=== PATIENT | female | born 1960 | race Caucasian/White ===

== ENCOUNTER → 2018-06-05 | Outpatient (CLI) | payer BC ==
[~2018-06-05] MED LIST: ALBU90OI; EPIN.3I; FLUSAL5005
[2018-06-05 12:34] LABS: BASOPHILS ABSOLUTE AUTO 0.03 K/mm3 (0.00-0.23); BASOPHILS PERCENT AUTO 1 % (0-2); EOSINOPHILS ABSOLUTE AUTO 0.25 K/mm3 (0.00-0.68); EOSINOPHILS PERCENT AUTO 4 % (0-6); Hematocrit 43.6 % (33.0-51.0); IMMATURE GRAN ABSOLUTE AUTO 0.04 K/mm3 (0.00-0.10); IMMATURE GRAN PERCENT AUTO 1 % (0-1); LYMPHOCYTES ABSOLUTE AUTO 1.23 K/mm3 (0.84-5.20); LYMPHOCYTES PERCENT AUTO 21 % (21-46); MONOCYTES ABSOLUTE AUTO 0.59 K/mm3 (0.16-1.47); MONOCYTES PERCENT AUTO 10 % (4-13); Mean Corpuscular HGB 30.7 pg (26.0-34.0); Mean Corpuscular HGB Conc 34.4 g/dL (31.5-36.5); Mean Corpuscular Volume 89 fL (80-100); Mean Platelet Volume 9.1 fL (9.1-12.4); NEUTROPHILS ABSOLUTE AUTO 3.67 K/mm3 (1.96-9.15); NEUTROPHILS PERCENT AUTO 63 % (41-73); Platelet Count 151 K/mm3 (150-400); RDW Coefficient Variation 12.7 % (11.7-14.2); RDW Standard Deviation 41.3 fL (35.1-46.3); Red Blood Cell Count 4.88 M/mm3 (3.80-5.20); White Blood Cell Count 5.81 K/mm3 (4.00-11.30)
[2018-06-05 12:47] LABS: Anion Gap 10 mmol/L (6-16); Blood Urea Nitrogen 12 mg/dL (8-24); Bun/Creatinine Ratio 14.1 (12.0-20.0); CO2, Blood 27 mmol/L (21-32); Calcium, Blood 9.7 mg/dL (8.5-10.1); Chloride, Blood 102 mmol/L (98-108); Creatinine, Blood 0.85 mg/dL (0.40-1.00); Glomerular Filtration Rate >60 (60-); Glucose, Blood 107 mg/dL (70-99); Potassium, Blood 4.1 mmol/L (3.5-5.5); Sodium, Blood 139 mmol/L (136-145); Troponin I <0.017 ng/mL (0.000-0.040)
== END | disposition home or self-care (01) ==
LOC: LAB EV 12:29 → LAB SHORT 12:29
PROVIDERS: Physician Assistant Surgical
DX: R06.02 Shortness of breath (principal)
CPT/HCPCS: 80048; 83880; 84484; 85025

== ENCOUNTER 2019-01-23 22:27 | Inpatient (IN) | payer BC ==
[~2019-01-23] VITALS: Ht 165.1 cm; Wt 83.0 kg
[~2019-01-23 22:27] MED LIST changes: -ALBU90OI; +ALBU90OI INH; -EPIN.3I; +EPIPEN 2-P0.3 MG/0.3 IM; -FLUSAL5005; +FLUT1DIS8 INH
[2019-01-23 23:12] LABS: BASOPHILS ABSOLUTE AUTO 0.07 K/mm3 (0.00-0.23); BASOPHILS PERCENT AUTO 0 % (0-2); EOSINOPHILS ABSOLUTE AUTO 0.24 K/mm3 (0.00-0.68); EOSINOPHILS PERCENT AUTO 2 % (0-6); Hematocrit 52.5 % (33.0-51.0); IMMATURE GRAN ABSOLUTE AUTO 0.11 K/mm3 (0.00-0.10); IMMATURE GRAN PERCENT AUTO 1 % (0-1); LYMPHOCYTES PERCENT AUTO 2 % (21-46); MONOCYTES ABSOLUTE AUTO 0.85 K/mm3 (0.16-1.47); MONOCYTES PERCENT AUTO 5 % (4-13); Mean Corpuscular HGB 31.7 pg (26.0-34.0); Mean Corpuscular HGB Conc 34.3 g/dL (31.5-36.5); Mean Corpuscular Volume 93 fL (80-100); Mean Platelet Volume 8.8 fL (9.1-12.4); NEUTROPHILS ABSOLUTE AUTO 14.23 K/mm3 (1.96-9.15); NEUTROPHILS PERCENT AUTO 90 % (41-73); Platelet Count 214 K/mm3 (150-400); RDW Coefficient Variation 12.7 % (11.7-14.2); RDW Standard Deviation 43.2 fL (35.1-46.3); Red Blood Cell Count 5.67 M/mm3 (3.80-5.20)
[2019-01-23] MEDS ORDERED: CEFD300 PO (23:31)
[2019-01-23] MEDS ORDERED: IRBE150 PO (23:31)
[2019-01-23 23:32] LABS: Alanine Aminotransfer (ALT/SGP 45 U/L (12-78); Albumin/Globulin Ratio 0.9 (0.8-1.8); Alk Phos 131 U/L (50-136); Anion Gap 9 mmol/L (6-16); Aspartate Aminotrans (AST/SGOT 33 U/L (12-37); Bilirubin, Total 0.7 mg/dL (0.1-1.0); Blood Urea Nitrogen 12 mg/dL (8-24); Bun/Creatinine Ratio 13.3 (12.0-20.0); CO2, Blood 23 mmol/L (21-32); Calcium, Blood 9.6 mg/dL (8.5-10.1); Chloride, Blood 105 mmol/L (98-108); Globulin, Blood 4.3 g/dL (2.2-4.0); Glomerular Filtration Rate >60 (60-); Glucose, Blood 155 mg/dL (70-99); Potassium, Blood 3.9 mmol/L (3.5-5.5); Sodium, Blood 137 mmol/L (136-145); Total Protein, Blood 8.3 g/dL (6.4-8.2); Troponin I <0.015 ng/mL (0.000-0.040)
[2019-01-23] MEDS ORDERED: TIOT18 INH (23:32)
--- NOTE | 2019-01-24 05:40 | NUR ---
PCU ADMIT / SHIFT SUMMARY PT BROUGHT TO PCU RM 09 FROM ER BY CARLYN @ APPROX 0400. PT A&O X4, ABLE TO INDEPENDENTLY AMBULATE. VSS. LUNG SOUNDS CLEAR, SPO2 > 92% ON RA. MONITOR SHOWS, NSR/ST, HR 90-115. PT UP TO BATHROOM W/ FREQUENT URINATION. STOOL TO BE COLLECTED FOR C-DIFF R/O. PT REPORTS FREQUENT DIARRHEA BEGINNING YESTERDAY, NO BM THIS SHIFT. WILL CONTINUE TO MONITOR AND PROVIDE CARE UNTIL REPORT OFF TO DAY SHIFT RN.
--- NOTE | 2019-01-24 16:06 | NUR ---
PT CHANGED TO MEDICAL STATUS THIS AM. VITAL SIGNS STABLE. NO COMPLAINTS AT THIS TIME. PT DENIES PAIN. PT INDEPENDENT IN THE ROOM. REPORT GIVEN TO MEDICAL FLOOR RN.
--- NOTE | 2019-01-24 18:46 | NUR ---
PT ARRIVED TO ROOM AT APPROX 1700 AND SETTLED IN. CAME BY W/C AND ABLE TO TRANSFER SELF TO BED AND THEN GOT UP AND WALKED AROUND IN ROOM. IV FLUIDS RESTARTED AND CALLED PHARMACY FOR CHANGE IN ANTIBIOTIC TREATMENT FREQUENCY. MEAL GIVEN TO PT. REPORTS SHE IS FEELING MUCH BETTER THAN WHEN SHE FIRST ARRIVED TO HOSPITAL.
--- NOTE | 2019-01-25 05:04 | NUR ---
SHIFT SUMMARY: 58 Y/O FEMALE RESTED COMFORTABLY IN BED ALL SHIFT, ALL AMBULATE BATHROOM AND BACK WITH GAIT SLOW AND STEADY, DENIES PAIN OR NAUSEA, CHEERFUL, DENIES DIARRHEA EPISODES ALL SHIFT, BED LOW POSITION, CALL LIGHT AT SIDE.
[2019-01-25 05:11] LABS: BASOPHILS ABSOLUTE AUTO 0.02 K/mm3 (0.00-0.23); BASOPHILS PERCENT AUTO 0 % (0-2); EOSINOPHILS PERCENT AUTO 5 % (0-6); Hematocrit 44.4 % (33.0-51.0); Hemoglobin 14.6 g/dL (11.5-16.0); IMMATURE GRAN ABSOLUTE AUTO 0.04 K/mm3 (0.00-0.10); IMMATURE GRAN PERCENT AUTO 1 % (0-1); LYMPHOCYTES ABSOLUTE AUTO 1.41 K/mm3 (0.84-5.20); LYMPHOCYTES PERCENT AUTO 21 % (21-46); MONOCYTES ABSOLUTE AUTO 0.46 K/mm3 (0.16-1.47); MONOCYTES PERCENT AUTO 7 % (4-13); Mean Corpuscular HGB 30.7 pg (26.0-34.0); Mean Corpuscular HGB Conc 32.9 g/dL (31.5-36.5); Mean Corpuscular Volume 94 fL (80-100); Mean Platelet Volume 8.5 fL (9.1-12.4); NEUTROPHILS ABSOLUTE AUTO 4.37 K/mm3 (1.96-9.15); NEUTROPHILS PERCENT AUTO 66 % (41-73); Platelet Count 159 K/mm3 (150-400); RDW Standard Deviation 44.2 fL (35.1-46.3); Red Blood Cell Count 4.75 M/mm3 (3.80-5.20)
[2019-01-25] MEDS ORDERED: Florastor250 MG PO (12:17)
[2019-01-25] MEDS ORDERED: CIPR500 PO (12:18)
== END 2019-01-25 12:56 | disposition home or self-care (01) | DRG 872 ==
LOC: ER 22:27 → PCU 01-24 03:55 → MEDS 01-24 16:49 → ENPENDDIS 01-25 12:03 → MEDS 01-25 12:56
PROVIDERS: Physician Assistant; ADMIT Internal Medicine
DX: A41.51 Sepsis due to Escherichia coli [E. coli] (principal); N39.0 Urinary tract infection, site not specified; R65.20 Severe sepsis without septic shock; J44.9 Chronic obstructive pulmonary disease, unspecified; I10 Essential (primary) hypertension; I95.9 Hypotension, unspecified; F17.200 Nicotine dependence, unspecified, uncomplicated; Z91.018 Allergy to other foods; Z79.899 Other long term (current) drug therapy
CPT/HCPCS: 36415; 71046; 80053; 83605; 84484; 85025; 87040; 87493; 93005; 93010; 94640; 94760; 96361; 96365; 96366; 99285-25; J1650; J2543; J7030; J7050

== ENCOUNTER → 2019-02-10 | Outpatient (CLI) | payer BC ==
[~2019-02-10] MED LIST changes: +CEFD300 PO; +CIPR500 PO; +Florastor250 MG PO; +IRBE150 PO; +TIOT18 INH
[2019-02-10 14:10] LABS: Source, Urine Clean Catch
[2019-02-10 15:13] LABS: Bilirubin, Urine Neg (Neg); Blood, Urine 1+ (Neg); Glucose Qualitative, Urine Neg (Neg); Ketones, Urine Neg (Neg); Leukocyte Esterase, Urine Neg (Neg); Nitrite, Urine Neg (Neg); Protein, Urine Neg (Neg); Specific Gravity, Urine 1.005 (1.003-1.022); Urobilinogen, Urine NORM (Normal); pH, Urine 6.5 (5.0-8.0)
[2019-02-10 15:28] LABS: Appearance, Urine Clear (Clear); Color, Urine Yellow (P-Yellow)
[2019-02-10 15:29] LABS: Bacteria Few /hpf; Squamous Epithelial Cells Few /hpf (Few); White Blood Cells, Urine 0-2 /hpf (0-5)
== END | disposition home or self-care (01) ==
LOC: LAB 14:09 → LAB SHORT 14:09 → EDSTATUS 02-07 12:15 → LAB FUT 02-07 12:15
PROVIDERS: Internal Medicine
DX: N39.0 Urinary tract infection, site not specified (principal)
CPT/HCPCS: 81001

== ENCOUNTER → 2019-09-04 | Outpatient (CLI) | payer BC ==
[2019-09-04 13:09] LABS: Source, Urine Clean Catch
[2019-09-04 15:16] LABS: Appearance, Urine Clear (Clear); Bilirubin, Urine Neg (Neg); Blood, Urine 1+ (Neg); Color, Urine Yellow (P-Yellow); Glucose Qualitative, Urine Neg (Neg); Ketones, Urine Neg (Neg); Leukocyte Esterase, Urine Neg (Neg); Nitrite, Urine Neg (Neg); Protein, Urine Neg (Neg); Specific Gravity, Urine 1.015 (1.003-1.022); Urobilinogen, Urine NORM (Normal); pH, Urine 6.5 (5.0-8.0)
[2019-09-04 16:55] LABS: Bacteria Rare /hpf; Red Blood Cells, Urine 0-2 /hpf (0-2); Squamous Epithelial Cells Few /hpf (Few); White Blood Cells, Urine 0-2 /hpf (0-5)
== END ==
LOC: LAB SHORT 13:07 → OLS 13:07
PROVIDERS: Urology
DX: N39.0 Urinary tract infection, site not specified (principal)
CPT/HCPCS: 81001; 87086

== ENCOUNTER 2019-12-11 21:16 | Emergency (ER) | payer BC ==
[~2019-12-11] VITALS: Ht 165.1 cm; Wt 89.4 kg
[2019-12-11 22:03] LABS: BASOPHILS ABSOLUTE AUTO 0.04 K/mm3 (0.00-0.23); BASOPHILS PERCENT AUTO 1 % (0-2); EOSINOPHILS ABSOLUTE AUTO 0.22 K/mm3 (0.00-0.68); EOSINOPHILS PERCENT AUTO 3 % (0-6); Hematocrit 45.9 % (33.0-51.0); Hemoglobin 15.9 g/dL (11.5-16.0); IMMATURE GRAN ABSOLUTE AUTO 0.04 K/mm3 (0.00-0.10); IMMATURE GRAN PERCENT AUTO 1 % (0-1); LYMPHOCYTES ABSOLUTE AUTO 2.38 K/mm3 (0.84-5.20); LYMPHOCYTES PERCENT AUTO 29 % (21-46); MONOCYTES ABSOLUTE AUTO 0.69 K/mm3 (0.16-1.47); MONOCYTES PERCENT AUTO 9 % (4-13); Mean Corpuscular HGB 30.8 pg (26.0-34.0); Mean Corpuscular HGB Conc 34.6 g/dL (31.5-36.5); Mean Corpuscular Volume 89 fL (80-100); Mean Platelet Volume 9.1 fL (9.1-12.4); NEUTROPHILS ABSOLUTE AUTO 4.72 K/mm3 (1.96-9.15); NEUTROPHILS PERCENT AUTO 58 % (41-73); Platelet Count 175 K/mm3 (150-400); RDW Coefficient Variation 12.3 % (11.7-14.2); RDW Standard Deviation 40.6 fL (35.1-46.3); Red Blood Cell Count 5.17 M/mm3 (3.80-5.20); White Blood Cell Count 8.09 K/mm3 (4.00-11.30)
[2019-12-11 22:25] LABS: Alanine Aminotransfer (ALT/SGP 58 U/L (12-78); Albumin, Blood 3.9 g/dL (3.4-5.0); Alk Phos 108 U/L (50-136); Anion Gap 7 mmol/L (6-16); Aspartate Aminotrans (AST/SGOT 44 U/L (12-37); Bilirubin, Total 0.4 mg/dL (0.1-1.0); Blood Urea Nitrogen 9 mg/dL (8-24); Bun/Creatinine Ratio 12.8 (12.0-20.0); CO2, Blood 25 mmol/L (21-32); Calcium, Blood 8.7 mg/dL (8.5-10.1); Chloride, Blood 102 mmol/L (98-108); Globulin, Blood 3.8 g/dL (2.2-4.0); Glomerular Filtration Rate >60 (60-); Glucose, Blood 119 mg/dL (70-99); Potassium, Blood 3.6 mmol/L (3.5-5.5); Sodium, Blood 134 mmol/L (136-145); Total Protein, Blood 7.7 g/dL (6.4-8.2); Troponin I <0.015 ng/mL (0.000-0.040)
== END 2019-12-12 00:58 | disposition home or self-care (01) ==
LOC: ER 21:16
PROVIDERS: Emergency Medicine
DX: R55 Syncope and collapse (principal); R07.9 Chest pain, unspecified; Z88.2 Allergy status to sulfonamides; Z91.018 Allergy to other foods; Z79.899 Other long term (current) drug therapy; Z79.2 Long term (current) use of antibiotics; J44.9 Chronic obstructive pulmonary disease, unspecified; I10 Essential (primary) hypertension; F17.200 Nicotine dependence, unspecified, uncomplicated
CPT/HCPCS: 36415; 71046; 80053; 84484; 85025; 93005; 93010; 99284-25

== ENCOUNTER 2020-08-07 23:54 | Emergency (ER) | payer BC ==
[~2020-08-07] VITALS: Ht 162.6 cm; Wt 86.2 kg
[~2020-08-07 23:54] MED LIST changes: -ALBU90OI INH; -FLUT1DIS8 INH
[2020-08-08 00:44] LABS: BASOPHILS ABSOLUTE AUTO 0.05 K/mm3 (0.00-0.23); BASOPHILS PERCENT AUTO 1 % (0-2); EOSINOPHILS ABSOLUTE AUTO 0.15 K/mm3 (0.00-0.68); EOSINOPHILS PERCENT AUTO 2 % (0-6); Hematocrit 49.7 % (33.0-51.0); Hemoglobin 17.4 g/dL (11.5-16.0); IMMATURE GRAN ABSOLUTE AUTO 0.03 K/mm3 (0.00-0.10); IMMATURE GRAN PERCENT AUTO 0 % (0-1); LYMPHOCYTES ABSOLUTE AUTO 1.82 K/mm3 (0.84-5.20); LYMPHOCYTES PERCENT AUTO 24 % (21-46); MONOCYTES ABSOLUTE AUTO 0.65 K/mm3 (0.16-1.47); MONOCYTES PERCENT AUTO 9 % (4-13); Mean Corpuscular HGB 30.5 pg (26.0-34.0); Mean Corpuscular Volume 87 fL (80-100); Mean Platelet Volume 9.2 fL (9.1-12.4); NEUTROPHILS ABSOLUTE AUTO 4.87 K/mm3 (1.96-9.15); NEUTROPHILS PERCENT AUTO 64 % (41-73); Platelet Count 211 K/mm3 (150-400); RDW Coefficient Variation 12.1 % (11.7-14.2); RDW Standard Deviation 38.9 fL (35.1-46.3); Red Blood Cell Count 5.71 M/mm3 (3.80-5.20); White Blood Cell Count 7.57 K/mm3 (4.00-11.30)
[2020-08-08 01:04] LABS: Alanine Aminotransfer (ALT/SGP 48 U/L (12-78); Albumin, Blood 3.7 g/dL (3.4-5.0); Albumin/Globulin Ratio 0.9 (0.8-1.8); Alk Phos 132 U/L (50-136); Anion Gap 9 mmol/L (6-16); Aspartate Aminotrans (AST/SGOT 28 U/L (12-37); Bilirubin, Total 0.4 mg/dL (0.1-1.0); Blood Urea Nitrogen 10 mg/dL (8-24); Bun/Creatinine Ratio 13.8 (12.0-20.0); CO2, Blood 26 mmol/L (21-32); Calcium, Blood 9.4 mg/dL (8.5-10.1); Chloride, Blood 105 mmol/L (98-108); Creatinine, Blood 0.73 mg/dL (0.40-1.00); Globulin, Blood 4.3 g/dL (2.2-4.0); Glomerular Filtration Rate >60 (60-); Glucose, Blood 130 mg/dL (70-99); Magnesium, Blood 2.1 mg/dL (1.6-2.4); Potassium, Blood 3.3 mmol/L (3.5-5.5); Sodium, Blood 140 mmol/L (136-145); Troponin I <0.015 ng/mL (0.000-0.040)
== END 2020-08-08 03:27 | disposition home or self-care (01) ==
LOC: ER 23:54
PROVIDERS: Emergency Medicine
DX: R00.2 Palpitations (principal); Z79.899 Other long term (current) drug therapy
CPT/HCPCS: 36415; 71046; 80053; 83735; 83880; 84145; 84484; 85025; 85379; 93005; 93010; 99284-25; J7030

== ENCOUNTER 2020-09-04 14:03 | Observation (INO) | payer BC ==
[~2020-09-04] VITALS: Ht 162.6 cm; Wt 88.5 kg
[2020-09-04 14:37] LABS: BASOPHILS ABSOLUTE AUTO 0.05 K/mm3 (0.00-0.23); BASOPHILS PERCENT AUTO 1 % (0-2); EOSINOPHILS ABSOLUTE AUTO 0.12 K/mm3 (0.00-0.68); EOSINOPHILS PERCENT AUTO 1 % (0-6); Hematocrit 47.2 % (33.0-51.0); Hemoglobin 16.3 g/dL (11.5-16.0); IMMATURE GRAN ABSOLUTE AUTO 0.03 K/mm3 (0.00-0.10); IMMATURE GRAN PERCENT AUTO 0 % (0-1); LYMPHOCYTES ABSOLUTE AUTO 1.68 K/mm3 (0.84-5.20); LYMPHOCYTES PERCENT AUTO 18 % (21-46); MONOCYTES ABSOLUTE AUTO 0.69 K/mm3 (0.16-1.47); MONOCYTES PERCENT AUTO 8 % (4-13); Mean Corpuscular HGB 30.4 pg (26.0-34.0); Mean Corpuscular HGB Conc 34.5 g/dL (31.5-36.5); Mean Corpuscular Volume 88 fL (80-100); Mean Platelet Volume 9.1 fL (9.1-12.4); NEUTROPHILS ABSOLUTE AUTO 6.66 K/mm3 (1.96-9.15); NEUTROPHILS PERCENT AUTO 72 % (41-73); Platelet Count 171 K/mm3 (150-400); RDW Coefficient Variation 12.2 % (11.7-14.2); RDW Standard Deviation 39.7 fL (35.1-46.3); Red Blood Cell Count 5.36 M/mm3 (3.80-5.20); White Blood Cell Count 9.23 K/mm3 (4.00-11.30)
[2020-09-04 15:02] LABS: Alanine Aminotransfer (ALT/SGP 47 U/L (12-78); Albumin, Blood 3.6 g/dL (3.4-5.0); Alk Phos 121 U/L (50-136); Anion Gap 7 mmol/L (6-16); Aspartate Aminotrans (AST/SGOT 30 U/L (12-37); Bilirubin, Total 0.3 mg/dL (0.1-1.0); Blood Urea Nitrogen 7 mg/dL (8-24); Bun/Creatinine Ratio 10.3 (12.0-20.0); CO2, Blood 25 mmol/L (21-32); Calcium, Blood 8.9 mg/dL (8.5-10.1); Chloride, Blood 107 mmol/L (98-108); Creatinine, Blood 0.68 mg/dL (0.40-1.00); Globulin, Blood 3.7 g/dL (2.2-4.0); Glomerular Filtration Rate >60 (60-); Glucose, Blood 123 mg/dL (70-99); Potassium, Blood 4.2 mmol/L (3.5-5.5); Sodium, Blood 139 mmol/L (136-145); Total Protein, Blood 7.3 g/dL (6.4-8.2); Troponin I <0.015 ng/mL (0.000-0.040)
[2020-09-04 15:05] LABS: CHOL/HDL RATIO 5.5; Cholesterol 264 mg/dL (50-200); HDL Cholesterol 48 mg/dL (>39); LDL/HDL RATIO 2.9; Low Density Lipoprotein Chol 137 mg/dL (0-110); Triglycerides 394 mg/dL (30-160); Very Low Density Lipoprot Chol 78 mg/dL (6-32)
[2020-09-04] MEDS ORDERED: SERT50 PO (15:07)
[2020-09-04] MEDS ORDERED: FLUT1DIS8 INH (15:09)
[2020-09-04] MEDS ORDERED: ALBU90OI INH (15:10)
--- NOTE | 2020-09-04 23:45 | NUR ---
STARTED PT ON PO CARDIZEM, DC'D IV CARDIZEM. VSS. HR SUSTAINING 70'S. BP STABLE. WILL CONTINUE TO MONITOR.
--- NOTE | 2020-09-05 05:24 | NUR ---
SHIFT SUMMARY PT RESTED WELL THROUGH NIGHT. ALERT AND ORIENTED - ABLE TO MAKE NEEDS KNOWN. SATS >90% ON ROOM AIR. TELE - NSR, RATE CONTROLLED THROUGH NIGHT - AVERAGING 710'S, DID NOT JUMP ABOVE 100'S. PT CHANGED FROM CARD GTT TO PO - TOLERATING WELL. INDEPENDENT IN ROOM. VOIDS TO BEDSIDE COMMODE OR BATHROOM. NO C/O PAIN OR CHEST PAIN. STATES SHE DOES NOT FEEL ANYMORE PALPATATIONS. VSS. CALL LIGHT WITHIN REACH, BED IN LOWEST POSITION. WILL CONTINUE TO MONITOR.
[2020-09-05 07:06] LABS: Hematocrit 41.2 % (33.0-51.0); Hemoglobin 14.3 g/dL (11.5-16.0); Mean Corpuscular HGB Conc 34.7 g/dL (31.5-36.5); Mean Corpuscular Volume 89 fL (80-100); Mean Platelet Volume 9.2 fL (9.1-12.4); Platelet Count 152 K/mm3 (150-400); RDW Coefficient Variation 12.8 % (11.7-14.2); RDW Standard Deviation 41.7 fL (35.1-46.3); Red Blood Cell Count 4.61 M/mm3 (3.80-5.20); White Blood Cell Count 6.85 K/mm3 (4.00-11.30)
[2020-09-05 07:20] LABS: Anion Gap 5 mmol/L (6-16); Blood Urea Nitrogen 11 mg/dL (8-24); Bun/Creatinine Ratio 14.9 (12.0-20.0); CO2, Blood 27 mmol/L (21-32); Calcium, Blood 8.9 mg/dL (8.5-10.1); Chloride, Blood 109 mmol/L (98-108); Creatinine, Blood 0.74 mg/dL (0.40-1.00); Glomerular Filtration Rate >60 (60-); Glucose, Blood 114 mg/dL (70-99); Magnesium, Blood 2.1 mg/dL (1.6-2.4); Phosphorus, Blood 4.4 mg/dL (2.5-4.9); Potassium, Blood 3.7 mmol/L (3.5-5.5); Sodium, Blood 141 mmol/L (136-145)
[2020-09-05] MEDS ORDERED: DILT120 PO (12:27)
[2020-09-05] MEDS ORDERED: DILT30 PO (12:28)
[2020-09-05] MEDS ORDERED: B-1100 M1 PO (12:29)
[2020-09-05] MEDS ORDERED: Hair, Skin & N1 EACH PO (12:29)
--- NOTE | 2020-09-05 15:40 | NUR ---
DISCHARGE: NO ACUTE CHANGES T/OUT SHIFT TODAY. PT CONTINUED A&O, RESP EVEN AND UNLABORED ON RA, HRR AND SR ON MONITOR. PT CONTINUED TO DENY SOB, CP. DISCHARGE PAPERWORK AND INSTRUCTIONS PROVIDED, ALL QUESTIONS ANSWERED. PRIVACY PROVIDED FOR PT TO DRESS.
== END 2020-09-05 15:56 | disposition home or self-care (01) ==
LOC: ER 14:03 → PCU 14:04 → ER 14:04 → PCU 14:05
PROVIDERS: Internal Medicine; Physician Assistant; ADMIT Emergency Medicine
DX: I47.1 Supraventricular tachycardia (principal); J44.9 Chronic obstructive pulmonary disease, unspecified; R73.03 Prediabetes; E55.9 Vitamin D deficiency, unspecified; E66.9 Obesity, unspecified; F41.8 Other specified anxiety disorders; F17.210 Nicotine dependence, cigarettes, uncomplicated; Z68.32 Body mass index [BMI] 32.0-32.9, adult
CPT/HCPCS: 36415; 71046; 80048; 80053; 80061; 82306; 83036; 83735; 84100; 84443; 84484; 85025; 85027; 93005; 93010; 93306; 94640; 94760; 96374; 96375; 99285-25; A9270; G0378; J0153; J1650; J7030

== ENCOUNTER 2020-09-10 10:41 | Emergency (ER) | payer BC ==
[~2020-09-10] VITALS: Ht 162.6 cm; Wt 86.2 kg
[~2020-09-10 10:41] MED LIST changes: +ALBU90OI INH; +B-1100 M1 PO; +DILT120 PO; +DILT30 PO; +FLUT1DIS8 INH; +Hair, Skin & N1 EACH PO; +SERT50 PO
[2020-09-10 11:10] LABS: Calcium, Ionized (POC) 1.22 mmol/L (1.10-1.46); Chloride (POC) 102 mmol/L (98-108); Creatinine (POC) 0.7 mg/dL (0.6-1.0); Glucose (ISTAT POC) 162 mg/dL (70-99); Hemoglobin (POC) 17.3 g/dL (12.0-16.0); Potassium (POC) 4.4 mmol/L (3.5-5.5); Sodium (POC) 136 mmol/L (135-148); Total CO2 (POC) 26 mmol/L (21-32)
[2020-09-10 11:12] LABS: BASOPHILS ABSOLUTE AUTO 0.05 K/mm3 (0.00-0.23); BASOPHILS PERCENT AUTO 1 % (0-2); EOSINOPHILS ABSOLUTE AUTO 0.14 K/mm3 (0.00-0.68); EOSINOPHILS PERCENT AUTO 1 % (0-6); Hematocrit 51.5 % (33.0-51.0); Hemoglobin 17.6 g/dL (11.5-16.0); IMMATURE GRAN ABSOLUTE AUTO 0.04 K/mm3 (0.00-0.10); IMMATURE GRAN PERCENT AUTO 0 % (0-1); LYMPHOCYTES ABSOLUTE AUTO 1.54 K/mm3 (0.84-5.20); LYMPHOCYTES PERCENT AUTO 15 % (21-46); MONOCYTES ABSOLUTE AUTO 1.12 K/mm3 (0.16-1.47); MONOCYTES PERCENT AUTO 11 % (4-13); Mean Corpuscular HGB 30.9 pg (26.0-34.0); Mean Corpuscular HGB Conc 34.2 g/dL (31.5-36.5); Mean Corpuscular Volume 91 fL (80-100); Mean Platelet Volume 9.5 fL (9.1-12.4); NEUTROPHILS ABSOLUTE AUTO 7.22 K/mm3 (1.96-9.15); NEUTROPHILS PERCENT AUTO 71 % (41-73); Platelet Count 178 K/mm3 (150-400); RDW Coefficient Variation 12.3 % (11.7-14.2); RDW Standard Deviation 40.5 fL (35.1-46.3); Red Blood Cell Count 5.69 M/mm3 (3.80-5.20); White Blood Cell Count 10.11 K/mm3 (4.00-11.30)
[2020-09-10 11:42] LABS: Alanine Aminotransfer (ALT/SGP 63 U/L (12-78); Albumin/Globulin Ratio 0.9 (0.8-1.8); Alk Phos 140 U/L (50-136); Anion Gap 6 mmol/L (6-16); Aspartate Aminotrans (AST/SGOT 33 U/L (12-37); Bilirubin, Total 0.3 mg/dL (0.1-1.0); Blood Urea Nitrogen 14 mg/dL (8-24); Bun/Creatinine Ratio 17.4 (12.0-20.0); CO2, Blood 25 mmol/L (21-32); Calcium, Blood 9.6 mg/dL (8.5-10.1); Chloride, Blood 105 mmol/L (98-108); Globulin, Blood 4.3 g/dL (2.2-4.0); Glomerular Filtration Rate >60 (60-); Glucose, Blood 164 mg/dL (70-99); Potassium, Blood 3.9 mmol/L (3.5-5.5); Sodium, Blood 136 mmol/L (136-145); Total Protein, Blood 8.3 g/dL (6.4-8.2)
[2020-09-10] MEDS ORDERED: FLUT1DIS8 INH (11:48)
[2020-09-10 11:52] LABS: Free Thyroxine 0.79 ng/dL (0.70-1.60)
[2020-09-10 11:53] LABS: Thyroid Stimulating Hormone 2.12 uIU/mL (0.360-4.800)
[2020-09-10] MEDS ORDERED: DILT120 PO (13:02)
== END 2020-09-10 13:36 ==
LOC: ER 10:41
PROVIDERS: Emergency Medicine
DX: I47.1 Supraventricular tachycardia (principal); J44.9 Chronic obstructive pulmonary disease, unspecified; F17.200 Nicotine dependence, unspecified, uncomplicated; Z79.899 Other long term (current) drug therapy; Z88.2 Allergy status to sulfonamides; Z91.018 Allergy to other foods
CPT/HCPCS: 80047; 80053; 84439; 84443; 85014; 85025; 93005; 93010; 96374; 96375; 99285-25; J0153; J7030

== ENCOUNTER 2020-09-19 01:47 | Emergency (ER) | payer BC ==
[~2020-09-19] VITALS: Ht 162.6 cm; Wt 86.2 kg
[2020-09-19 02:19] LABS: BASOPHILS ABSOLUTE AUTO 0.05 K/mm3 (0.00-0.23); BASOPHILS PERCENT AUTO 1 % (0-2); EOSINOPHILS ABSOLUTE AUTO 0.18 K/mm3 (0.00-0.68); EOSINOPHILS PERCENT AUTO 2 % (0-6); Hematocrit 46.5 % (33.0-51.0); Hemoglobin 16.4 g/dL (11.5-16.0); IMMATURE GRAN ABSOLUTE AUTO 0.05 K/mm3 (0.00-0.10); IMMATURE GRAN PERCENT AUTO 1 % (0-1); LYMPHOCYTES ABSOLUTE AUTO 2.45 K/mm3 (0.84-5.20); LYMPHOCYTES PERCENT AUTO 27 % (21-46); MONOCYTES ABSOLUTE AUTO 0.67 K/mm3 (0.16-1.47); MONOCYTES PERCENT AUTO 7 % (4-13); Mean Corpuscular HGB Conc 35.3 g/dL (31.5-36.5); Mean Corpuscular Volume 88 fL (80-100); Mean Platelet Volume 9.3 fL (9.1-12.4); NEUTROPHILS ABSOLUTE AUTO 5.65 K/mm3 (1.96-9.15); NEUTROPHILS PERCENT AUTO 62 % (41-73); Platelet Count 217 K/mm3 (150-400); RDW Coefficient Variation 12.3 % (11.7-14.2); RDW Standard Deviation 39.7 fL (35.1-46.3); Red Blood Cell Count 5.29 M/mm3 (3.80-5.20); White Blood Cell Count 9.05 K/mm3 (4.00-11.30)
[2020-09-19 02:42] LABS: Alanine Aminotransfer (ALT/SGP 45 U/L (12-78); Albumin, Blood 3.6 g/dL (3.4-5.0); Albumin/Globulin Ratio 0.9 (0.8-1.8); Alk Phos 135 U/L (50-136); Anion Gap 8 mmol/L (6-16); Aspartate Aminotrans (AST/SGOT 24 U/L (12-37); Bilirubin, Total 0.2 mg/dL (0.1-1.0); Blood Urea Nitrogen 11 mg/dL (8-24); Bun/Creatinine Ratio 16.2 (12.0-20.0); CO2, Blood 25 mmol/L (21-32); Calcium, Blood 8.8 mg/dL (8.5-10.1); Chloride, Blood 104 mmol/L (98-108); Creatinine, Blood 0.68 mg/dL (0.40-1.00); Glomerular Filtration Rate >60 (60-); Glucose, Blood 117 mg/dL (70-99); Potassium, Blood 3.5 mmol/L (3.5-5.5); Sodium, Blood 137 mmol/L (136-145); Total Protein, Blood 7.6 g/dL (6.4-8.2); Troponin I <0.015 ng/mL (0.000-0.040)
== END 2020-09-19 04:00 | disposition home or self-care (01) ==
LOC: ER 01:47
PROVIDERS: Emergency Medicine
DX: I48.91 Unspecified atrial fibrillation (principal); J44.9 Chronic obstructive pulmonary disease, unspecified; F17.210 Nicotine dependence, cigarettes, uncomplicated; Z79.899 Other long term (current) drug therapy; Z88.2 Allergy status to sulfonamides; Z91.018 Allergy to other foods
CPT/HCPCS: 36415; 80053; 84484; 85025; 93005; 93010; 96374; 99285-25; G0480

== ENCOUNTER 2020-09-22 02:56 | Emergency (ER) | payer BC ==
[~2020-09-22] VITALS: Ht 165.1 cm; Wt 89.4 kg
[2020-09-22 03:24] LABS: BASOPHILS ABSOLUTE AUTO 0.06 K/mm3 (0.00-0.23); BASOPHILS PERCENT AUTO 1 % (0-2); EOSINOPHILS ABSOLUTE AUTO 0.19 K/mm3 (0.00-0.68); EOSINOPHILS PERCENT AUTO 2 % (0-6); Hematocrit 45.7 % (33.0-51.0); Hemoglobin 16.2 g/dL (11.5-16.0); IMMATURE GRAN ABSOLUTE AUTO 0.05 K/mm3 (0.00-0.10); IMMATURE GRAN PERCENT AUTO 1 % (0-1); LYMPHOCYTES PERCENT AUTO 21 % (21-46); MONOCYTES ABSOLUTE AUTO 0.91 K/mm3 (0.16-1.47); MONOCYTES PERCENT AUTO 10 % (4-13); Mean Corpuscular HGB 31.1 pg (26.0-34.0); Mean Corpuscular HGB Conc 35.4 g/dL (31.5-36.5); Mean Corpuscular Volume 88 fL (80-100); Mean Platelet Volume 9.3 fL (9.1-12.4); NEUTROPHILS PERCENT AUTO 66 % (41-73); Platelet Count 200 K/mm3 (150-400); RDW Coefficient Variation 12.3 % (11.7-14.2); RDW Standard Deviation 39.5 fL (35.1-46.3); Red Blood Cell Count 5.21 M/mm3 (3.80-5.20); White Blood Cell Count 9.21 K/mm3 (4.00-11.30)
[2020-09-22 03:50] LABS: Alanine Aminotransfer (ALT/SGP 40 U/L (12-78); Albumin, Blood 3.5 g/dL (3.4-5.0); Albumin/Globulin Ratio 0.9 (0.8-1.8); Alk Phos 123 U/L (50-136); Anion Gap 8 mmol/L (6-16); Aspartate Aminotrans (AST/SGOT 24 U/L (12-37); Bilirubin, Total 0.3 mg/dL (0.1-1.0); Blood Urea Nitrogen 12 mg/dL (8-24); Bun/Creatinine Ratio 17.1 (12.0-20.0); CO2, Blood 24 mmol/L (21-32); Calcium, Blood 8.9 mg/dL (8.5-10.1); Chloride, Blood 107 mmol/L (98-108); Free Thyroxine 0.81 ng/dL (0.70-1.60); Globulin, Blood 3.9 g/dL (2.2-4.0); Glomerular Filtration Rate >60 (60-); Glucose, Blood 124 mg/dL (70-99); Sodium, Blood 139 mmol/L (136-145); Total Protein, Blood 7.4 g/dL (6.4-8.2); Triiodothyronine, Free 3.06 pg/mL (2.18-3.98); Troponin I <0.015 ng/mL (0.000-0.040)
== END 2020-09-22 05:36 | disposition home or self-care (01) ==
LOC: ER 02:56
PROVIDERS: Emergency Medicine
DX: I48.91 Unspecified atrial fibrillation (principal); J44.9 Chronic obstructive pulmonary disease, unspecified; F17.210 Nicotine dependence, cigarettes, uncomplicated; Z79.899 Other long term (current) drug therapy; Z88.2 Allergy status to sulfonamides; Z91.018 Allergy to other foods
CPT/HCPCS: 36415; 80053; 83735; 84439; 84443; 84481; 84484; 85025; 93005; 93010; 96365; 96376; 99285-25; G0480

== ENCOUNTER 2020-09-29 03:31 | Observation (INO) | payer BC ==
[~2020-09-29] VITALS: Ht 162.6 cm; Wt 86.7 kg
[2020-09-29 04:08] LABS: BASOPHILS ABSOLUTE AUTO 0.04 K/mm3 (0.00-0.23); BASOPHILS PERCENT AUTO 1 % (0-2); EOSINOPHILS ABSOLUTE AUTO 0.17 K/mm3 (0.00-0.68); EOSINOPHILS PERCENT AUTO 2 % (0-6); Hematocrit 45.7 % (33.0-51.0); IMMATURE GRAN ABSOLUTE AUTO 0.03 K/mm3 (0.00-0.10); IMMATURE GRAN PERCENT AUTO 0 % (0-1); LYMPHOCYTES ABSOLUTE AUTO 1.69 K/mm3 (0.84-5.20); LYMPHOCYTES PERCENT AUTO 21 % (21-46); MONOCYTES ABSOLUTE AUTO 0.83 K/mm3 (0.16-1.47); MONOCYTES PERCENT AUTO 10 % (4-13); Mean Corpuscular HGB 30.7 pg (26.0-34.0); Mean Corpuscular Volume 88 fL (80-100); Mean Platelet Volume 9.8 fL (9.1-12.4); NEUTROPHILS ABSOLUTE AUTO 5.41 K/mm3 (1.96-9.15); NEUTROPHILS PERCENT AUTO 66 % (41-73); Platelet Count 182 K/mm3 (150-400); RDW Coefficient Variation 12.2 % (11.7-14.2); RDW Standard Deviation 39.5 fL (35.1-46.3); Red Blood Cell Count 5.21 M/mm3 (3.80-5.20); White Blood Cell Count 8.17 K/mm3 (4.00-11.30)
[2020-09-29 04:33] LABS: Alanine Aminotransfer (ALT/SGP 44 U/L (12-78); Albumin, Blood 3.4 g/dL (3.4-5.0); Albumin/Globulin Ratio 0.9 (0.8-1.8); Alk Phos 127 U/L (50-136); Anion Gap 6 mmol/L (6-16); Aspartate Aminotrans (AST/SGOT 21 U/L (12-37); Bilirubin, Total 0.2 mg/dL (0.1-1.0); Blood Urea Nitrogen 12 mg/dL (8-24); Bun/Creatinine Ratio 16.2 (12.0-20.0); CO2, Blood 26 mmol/L (21-32); Chloride, Blood 107 mmol/L (98-108); Creatinine, Blood 0.74 mg/dL (0.40-1.00); Globulin, Blood 3.9 g/dL (2.2-4.0); Glomerular Filtration Rate >60 (60-); Glucose, Blood 190 mg/dL (70-99); Potassium, Blood 3.7 mmol/L (3.5-5.5); Sodium, Blood 139 mmol/L (136-145); Total Protein, Blood 7.3 g/dL (6.4-8.2); Troponin I <0.015 ng/mL (0.000-0.040)
[2020-09-29] MEDS ORDERED: Tambocor100 MG PO (04:38)
[2020-09-29] MEDS ORDERED: VITAMIN D31000 UNI1 PO (05:59)
--- NOTE | 2020-09-29 07:28 | NUR ---
Pt is awake, alert, and without any complaints. Requesting nicotine patch early if possible. Pt's heart rhythm is 79 bpm, sinus rhythm. Cardizem gtt titrated down to 5 mg/hour, then discontinued after 10 minutes as pt had received the oral cardizem one hour ago.
--- NOTE | 2020-09-29 07:45 | NUR ---
ICU 16, New Admit Pt arrived via gurney to ICU 16 accompined by ED nurse. Pt able to walk to ICU bed with minial assitance, tolerated well. Upon arrival pt on Diltiazem drip 10 mg/hr, infusing via right AC IV, NSR, HR 90-70's. Pt has dry nonproudctive cough. Placed on 2 L via NC to keep SPO2 > 90%. Pt educated on importance of smoking cessation. She states she will stop next month along with her , always in contact with [facility] [place]. A/O X 4, calm and cooperative. Patients Tod at bedside upon patients arrival, states he will return during visiting hours. Will report to oncoming shift.
[2020-09-29] MEDS ORDERED: DILT180 PO (15:32)
[2020-09-29] MEDS ORDERED: NICO21TP TOP (15:34)
== END 2020-09-29 16:00 | disposition home or self-care (01) ==
LOC: ER 03:31 → ICUW 03:32
PROVIDERS: Emergency Medicine; ADMIT Internal Medicine
DX: I48.91 Unspecified atrial fibrillation (principal); J44.9 Chronic obstructive pulmonary disease, unspecified; F17.200 Nicotine dependence, unspecified, uncomplicated; E66.9 Obesity, unspecified; E55.9 Vitamin D deficiency, unspecified; E87.6 Hypokalemia; F41.9 Anxiety disorder, unspecified; F32.9 Major depressive disorder, single episode, unspecified; R73.03 Prediabetes; Z86.79 Personal history of other diseases of the circulatory system; Z68.32 Body mass index [BMI] 32.0-32.9, adult; Z88.2 Allergy status to sulfonamides; Z91.018 Allergy to other foods; Z91.040 Latex allergy status
CPT/HCPCS: 36415; 80053; 83735; 84484; 85025; 93005; 93010; 96372; 96374; 96375; 96376; 99285-25; A9270; G0378; J1650; J3480; J7030; J7050

== ENCOUNTER 2022-11-14 10:34 | Day surgery (SDC) | payer BC ==
[~2022-11-14] VITALS: Ht 165.1 cm; Wt 84.6 kg
[~2022-11-14 10:34] MED LIST changes: +DILT180 PO; +NICO21TP TOP; +Tambocor100 MG PO; +VITAMIN D31000 UNI1 PO
[2022-11-14 12:33] VITALS: BP 112/60
== END 2022-11-14 12:35 | disposition home or self-care (01) ==
LOC: ORSCSDS 10:34
PROVIDERS: Internal Medicine Gastroenterology
PROC: 0DBL8ZX Excision of Transverse Colon, Via Natural or Artificial Opening Endoscopic, Diagnostic (ICD-10-PCS; principal; 2022-11-14 12:00)
PROC: 0DBN8ZX Excision of Sigmoid Colon, Via Natural or Artificial Opening Endoscopic, Diagnostic (ICD-10-PCS; principal; 2022-11-14 12:00)
PROC: 0DBH8ZX Excision of Cecum, Via Natural or Artificial Opening Endoscopic, Diagnostic (ICD-10-PCS; principal; 2022-11-14 12:00)
DX: Z12.11 Encounter for screening for malignant neoplasm of colon (principal); Z86.010 Personal history of colon polyps; D12.3 Benign neoplasm of transverse colon; D12.0 Benign neoplasm of cecum; K63.5 Polyp of colon; Z83.71 Family history of colonic polyps; K57.30 Diverticulosis of large intestine without perforation or abscess without bleeding; K64.4 Residual hemorrhoidal skin tags; I10 Essential (primary) hypertension; J44.9 Chronic obstructive pulmonary disease, unspecified; F17.210 Nicotine dependence, cigarettes, uncomplicated; I48.91 Unspecified atrial fibrillation; E11.9 Type 2 diabetes mellitus without complications; Z79.899 Other long term (current) drug therapy; Z99.81 Dependence on supplemental oxygen
CPT/HCPCS: 82947; 88305; J2704; J7120

== ENCOUNTER 2023-01-18 15:00 | Emergency (ER) | payer BC ==
[~2023-01-18] VITALS: Ht 165.1 cm; Wt 86.2 kg
[2023-01-18 15:50] LABS: BASOPHILS ABSOLUTE AUTO 0.04 K/mm3 (0.00-0.23); BASOPHILS PERCENT AUTO 1 % (0-2); EOSINOPHILS ABSOLUTE AUTO 0.31 K/mm3 (0.00-0.68); EOSINOPHILS PERCENT AUTO 4 % (0-6); Hematocrit 45.4 % (33.0-51.0); Hemoglobin 15.9 g/dL (11.5-16.0); IMMATURE GRAN ABSOLUTE AUTO 0.03 K/mm3 (0.00-0.10); IMMATURE GRAN PERCENT AUTO 0 % (0-1); LYMPHOCYTES ABSOLUTE AUTO 1.28 K/mm3 (0.84-5.20); LYMPHOCYTES PERCENT AUTO 15 % (21-46); MONOCYTES ABSOLUTE AUTO 0.71 K/mm3 (0.16-1.47); MONOCYTES PERCENT AUTO 8 % (4-13); Mean Corpuscular HGB 30.9 pg (26.0-34.0); Mean Corpuscular Volume 88 fL (80-100); NEUTROPHILS ABSOLUTE AUTO 6.27 K/mm3 (1.96-9.15); NEUTROPHILS PERCENT AUTO 73 % (41-73); Platelet Count 163 K/mm3 (150-400); RDW Coefficient Variation 12.5 % (11.7-14.2); RDW Standard Deviation 40.6 fL (35.1-46.3); Red Blood Cell Count 5.14 M/mm3 (3.80-5.20); White Blood Cell Count 8.64 K/mm3 (4.00-11.30)
[2023-01-18 16:11] LABS: Albumin, Blood 3.8 g/dL (3.4-5.0); Bilirubin, Total 0.4 mg/dL (0.1-1.0); Bun/Creatinine Ratio 14.8 (12.0-20.0); Calcium, Blood 9.1 mg/dL (8.5-10.1); Creatinine, Blood 0.68 mg/dL (0.40-1.00); Globulin, Blood 3.9 g/dL (2.2-4.0); Potassium, Blood 3.9 mmol/L (3.5-5.5); Total Protein, Blood 7.7 g/dL (6.4-8.2)
[2023-01-18] MEDS ORDERED: PRED20 PO (17:37)
[2023-01-18 18:30] VITALS: BP 139/72
== END 2023-01-18 19:07 | disposition home or self-care (01) ==
LOC: ER 15:00
PROVIDERS: Physician Assistant
DX: R07.89 Other chest pain (principal); R06.02 Shortness of breath; F17.210 Nicotine dependence, cigarettes, uncomplicated; Z88.2 Allergy status to sulfonamides; Z91.040 Latex allergy status; Z91.018 Allergy to other foods; Z79.51 Long term (current) use of inhaled steroids; Z79.899 Other long term (current) drug therapy; J44.9 Chronic obstructive pulmonary disease, unspecified; R73.03 Prediabetes
CPT/HCPCS: 71046; 80053; 83880; 84484; 85025; 85379; 93005; 93010; 94640; 94664; 99285-25; J7512

== ENCOUNTER → 2025-03-07 | Outpatient (CLI) | payer BC ==
[~2025-03-07] MED LIST changes: +PRED20 PO
[2025-03-07 13:27] LABS: BASOPHILS ABSOLUTE AUTO 0.05 K/mm3 (0.00-0.23); BASOPHILS PERCENT AUTO 0 % (0-2); EOSINOPHILS ABSOLUTE AUTO 0.05 K/mm3 (0.00-0.68); EOSINOPHILS PERCENT AUTO 0 % (0-6); Hematocrit 45.9 % (33.0-51.0); Hemoglobin 15.7 g/dL (11.5-16.0); IMMATURE GRAN ABSOLUTE AUTO 0.06 K/mm3 (0.00-0.10); IMMATURE GRAN PERCENT AUTO 0 % (0-1); LYMPHOCYTES ABSOLUTE AUTO 0.95 K/mm3 (0.84-5.20); LYMPHOCYTES PERCENT AUTO 7 % (21-46); MONOCYTES ABSOLUTE AUTO 1.31 K/mm3 (0.16-1.47); MONOCYTES PERCENT AUTO 9 % (4-13); Mean Corpuscular HGB Conc 34.2 g/dL (31.5-36.5); Mean Corpuscular Volume 90 fL (80-100); NEUTROPHILS ABSOLUTE AUTO 11.67 K/mm3 (1.96-9.15); NEUTROPHILS PERCENT AUTO 83 % (41-73); NRBC ABSOLUTE 0.00 K/mm3 (0.00-0.02); NRBC Auto 0.0 /100 WBC (0.0-0.2); Platelet Count 146 K/mm3 (150-400); RDW Coefficient Variation 12.6 % (11.7-14.2); RDW Standard Deviation 41.9 fL (35.1-46.3)
[2025-03-07 13:42] LABS: Alanine Aminotransfer (ALT/SGP 23.0 U/L (12-78); Albumin, Blood 3.7 g/dL (3.4-5.0); Albumin/Globulin Ratio 0.9 (0.8-1.8); Anion Gap 8.0 mmol/L (3-11); Aspartate Aminotrans (AST/SGOT 18.0 U/L (12-37); Bilirubin, Total 0.9 mg/dL (0.1-1.0); Blood Urea Nitrogen 8.0 mg/dL (8-24); CO2, Blood 26.0 mmol/L (21-32); Calcium, Blood 8.9 mg/dL (8.5-10.1); Chloride, Blood 103.0 mmol/L (98-108); Creatinine, Blood 0.65 mg/dL (0.40-1.00); Globulin, Blood 4.2 g/dL (2.2-4.0); Glucose, Blood 147.0 mg/dL (70-99); Potassium, Blood 3.7 mmol/L (3.5-5.5); Sodium, Blood 133.0 mmol/L (136-145); Total Protein, Blood 7.9 g/dL (6.4-8.2)
== END ==
LOC: LAB SHORT 12:55 → LAB 12:55
PROVIDERS: Nurse Practitioner Acute Care
DX: R22.1 Localized swelling, mass and lump, neck (principal)
CPT/HCPCS: 80053; 85025

== ENCOUNTER 2025-03-16 15:33 | Emergency (ER) | payer BC ==
[~2025-03-16] VITALS: Ht 162.6 cm; Wt 83.9 kg
[2025-03-16 15:44] VITALS: BP 149/92
[2025-03-16 16:11] LABS: BASOPHILS ABSOLUTE AUTO 0.04 K/mm3 (0.00-0.23); BASOPHILS PERCENT AUTO 1 % (0-2); EOSINOPHILS ABSOLUTE AUTO 0.11 K/mm3 (0.00-0.68); EOSINOPHILS PERCENT AUTO 1 % (0-6); Hematocrit 45.7 % (33.0-51.0); Hemoglobin 15.6 g/dL (11.5-16.0); IMMATURE GRAN ABSOLUTE AUTO 0.08 K/mm3 (0.00-0.10); IMMATURE GRAN PERCENT AUTO 1 % (0-1); LYMPHOCYTES ABSOLUTE AUTO 1.35 K/mm3 (0.84-5.20); LYMPHOCYTES PERCENT AUTO 17 % (21-46); MONOCYTES ABSOLUTE AUTO 0.52 K/mm3 (0.16-1.47); MONOCYTES PERCENT AUTO 7 % (4-13); Mean Corpuscular HGB Conc 34.1 g/dL (31.5-36.5); Mean Corpuscular Volume 89 fL (80-100); NEUTROPHILS ABSOLUTE AUTO 5.94 K/mm3 (1.96-9.15); NEUTROPHILS PERCENT AUTO 74 % (41-73); NRBC ABSOLUTE 0.00 K/mm3 (0.00-0.02); NRBC Auto 0.0 /100 WBC (0.0-0.2); Platelet Count 158 K/mm3 (150-400); RDW Coefficient Variation 12.5 % (11.7-14.2); RDW Standard Deviation 41.2 fL (35.1-46.3)
[2025-03-16 16:43] LABS: Alanine Aminotransfer (ALT/SGP 31.0 U/L (12-78); Albumin, Blood 3.4 g/dL (3.4-5.0); Albumin/Globulin Ratio 0.8 (0.8-1.8); Anion Gap 10.0 mmol/L (3-11); Aspartate Aminotrans (AST/SGOT 19.0 U/L (12-37); Bilirubin, Total 0.4 mg/dL (0.1-1.0); Blood Urea Nitrogen 9.0 mg/dL (8-24); CO2, Blood 26.0 mmol/L (21-32); Calcium, Blood 9.0 mg/dL (8.5-10.1); Chloride, Blood 103.0 mmol/L (98-108); Creatinine, Blood 0.66 mg/dL (0.40-1.00); Globulin, Blood 4.2 g/dL (2.2-4.0); Glucose, Blood 190.0 mg/dL (70-99); Potassium, Blood 3.9 mmol/L (3.5-5.5); Sodium, Blood 135.0 mmol/L (136-145); Total Protein, Blood 7.6 g/dL (6.4-8.2)
[2025-03-16] MEDS ORDERED: CefTRIAXone Sodium 1,000 MG in NS 100 ML IV SCH (16:55)
[2025-03-16] MEDS ORDERED: Dexamethasone Sod Phos 10 MG/ML 1ML VIAL PO ONE (17:00)
[2025-03-16] MEDS ORDERED: AMOCLA875 PO (17:01)
== END 2025-03-16 17:15 | disposition home or self-care (01) ==
LOC: ER 15:33
PROVIDERS: Student in an Organized Health Care Education/Training Program
DX: J36 Peritonsillar abscess (principal); E87.1 Hypo-osmolality and hyponatremia; R73.9 Hyperglycemia, unspecified; J44.89 Other specified chronic obstructive pulmonary disease; R73.03 Prediabetes; F17.210 Nicotine dependence, cigarettes, uncomplicated; Z88.2 Allergy status to sulfonamides; Z91.018 Allergy to other foods; Z91.040 Latex allergy status; Z79.51 Long term (current) use of inhaled steroids; Z79.899 Other long term (current) drug therapy; Z59.89 Other problems related to housing and economic circumstances
CPT/HCPCS: 80053; 85025; 87081; 87430; 96374; 99283-25; J0696; J1100